=== PATIENT | female | born 1955 | race Caucasian/White ===

== ENCOUNTER 2021-12-06 08:23 | Day surgery (SDC) | payer MEDICARE ==
[~2021-12-06] VITALS: Ht 157.5 cm; Wt 86.2 kg
[~2021-12-06 08:23] MED LIST: 24HR ALLERGY R180 MG PO; BAYER ASPIRIN E81 MG PO; CENTRUM ADULTS1 TAB PO; CRANBERRY125 MG PO; ELAVIL25 M1 PO; KAPSPARGO SPRIN50 MG PO; MONTELUKAST SOD10 MG PO; PEPCID20 MG PO; PRESERVISION AREDS 2 PO; WELLBUTRIN150 M1 PO
[2021-12-06 11:09] VITALS: BP 124/63
== END 2021-12-06 11:30 | disposition home or self-care (01) ==
LOC: ENDO 08:23 → ORM 09:20 → ENDO 09:20 → ORM 09:45 → ENDO 10:00
PROVIDERS: ATTEND Surgery
PROC: 0DJD8ZZ Inspection of Lower Intestinal Tract, Via Natural or Artificial Opening Endoscopic (ICD-10-PCS; principal; 2021-12-06)
DX: K64.8 Other hemorrhoids (principal); I10 Essential (primary) hypertension

== ENCOUNTER 2021-12-08 16:38 | Observation (INO) | payer MEDICARE ==
[~2021-12-08] VITALS: Ht 157.5 cm; Wt 80.0 kg
[2021-12-08] VITALS (10 sets, daily range): BP systolic 138–162; BP diastolic 78–92
[2021-12-08 17:16] LABS: GFR > 60 ML/MIN (>=60 (CALC)); GFR FOR AFR.AMER. > 60 ML/MIN (>=60 (CALC))
[2021-12-08 17:19] LABS: HEMATOCRIT 41.7 % (37.0-47.0); HEMOGLOBIN 13.2 g/dl (12.0-16.0); IMMATURE GRANULOCYTES 0.1 % (0.0-5.0); MEAN CELL VOLUME 89.1 fL CALC (80.0-100.0); MEAN CORPUSCULAR HGB 28.2 pG CALC (26.0-32.0); MEAN CORPUSCULAR HGB CONC 31.7 g/dL CAL (32.0-36.0); NEUT# 6.46 thou/uL (2.00-7.15); RED BLOOD COUNT 4.68 mill/uL (4.20-5.60); RED CELL DISTRI WIDTH 13.3 % (11.5-15.5)
[2021-12-08 17:29] LABS: ALBUMIN 4.2 g/dL (3.2-5.0); ALKALINE PHOSPHATASE 92 u/l (38-126); ANION GAP 13 (6-22 (CALC)); BILIRUBIN, TOTAL 0.2 mg/dL (0.0-1.4); BUN 12 mg/dL (8-23); BUN/CREATININE RATIO 14 (12-20 (CALC)); CARBON DIOXIDE 28 mmol/l (22-30); CHLORIDE 100 mmol/l (95-108); CREATININE 0.9 mg/dL (0.5-1.0); GFR > 60 ML/MIN (>=60 (CALC)); GFR FOR AFR.AMER. > 60 ML/MIN (>=60 (CALC)); POTASSIUM 4.2 mmol/l (3.5-5.1); SGOT/AST 23 u/l (9-36); SODIUM 137 mmol/l (137-146)
[2021-12-08 18:53] LABS: MAGNESIUM 1.9 mg/dL (1.6-2.3)
[2021-12-08 19:24] LABS: TSH, 3RD GENERATION 4.52 uIU/mL (0.47 - 4.68)
[2021-12-09] VITALS: BP 134/79
[2021-12-09 04:00] VITALS: BP 126/72
[2021-12-09 08:00] VITALS: BP 157/71
[2021-12-09 10:33] VITALS: BP 140/67
[2021-12-09] MEDS ORDERED: FLONASE AL50 MCG/ACT (10:51)
== END 2021-12-09 12:55 | disposition home or self-care (01) ==
LOC: ED 16:38 → MS2 18:36
PROVIDERS: Family Medicine; ADMIT Internal Medicine; ATTEND Internal Medicine
DX: R07.2 Precordial pain (principal); I10 Essential (primary) hypertension; K21.9 Gastro-esophageal reflux disease without esophagitis; F41.9 Anxiety disorder, unspecified; F32.A Depression, unspecified; Z79.82 Long term (current) use of aspirin; Z20.822 Contact with and (suspected) exposure to COVID-19
CPT/HCPCS: J1650; Q9967

== ENCOUNTER 2021-12-09 13:03 | Emergency (ER) | payer MEDICARE ==
[~2021-12-09] VITALS: Ht 157.5 cm; Wt 85.0 kg
[~2021-12-09 13:03] MED LIST changes: +FLONASE AL50 MCG/ACT
[2021-12-09 13:18] VITALS: BP 145/95
[2021-12-09 13:30] VITALS: BP 169/92
[2021-12-09 14:00] VITALS: BP 156/95
[2021-12-09 14:01] LABS: HEMATOCRIT 43.4 % (37.0-47.0); HEMOGLOBIN 13.8 g/dl (12.0-16.0); IMMATURE GRANULOCYTES 0.3 % (0.0-5.0); MEAN CELL VOLUME 88.8 fL CALC (80.0-100.0); MEAN CORPUSCULAR HGB 28.2 pG CALC (26.0-32.0); MEAN CORPUSCULAR HGB CONC 31.8 g/dL CAL (32.0-36.0); NEUT# 5.25 thou/uL (2.00-7.15); RED BLOOD COUNT 4.89 mill/uL (4.20-5.60); RED CELL DISTRI WIDTH 13.3 % (11.5-15.5)
[2021-12-09 14:13] LABS: ALBUMIN 4.3 g/dL (3.2-5.0); ALKALINE PHOSPHATASE 72 u/l (38-126); AMYLASE 60 u/l (30-110); ANION GAP 11 (6-22 (CALC)); BILIRUBIN, TOTAL 0.3 mg/dL (0.0-1.4); BUN 10 mg/dL (8-23); BUN/CREATININE RATIO 11 (12-20 (CALC)); CARBON DIOXIDE 30 mmol/l (22-30); CHLORIDE 101 mmol/l (95-108); CREATININE 0.9 mg/dL (0.5-1.0); GFR > 60 ML/MIN (>=60 (CALC)); GFR FOR AFR.AMER. > 60 ML/MIN (>=60 (CALC)); LIPASE 90 u/l (23-300); POTASSIUM 4.4 mmol/l (3.5-5.1); SGOT/AST 20 u/l (9-36); SODIUM 137 mmol/l (137-146)
[2021-12-09 14:30] VITALS: BP 175/92
[2021-12-09 15:00] VITALS: BP 162/91
[2021-12-09 15:55] VITALS: BP 162/91
== END 2021-12-09 15:55 | disposition left against medical advice (07) ==
LOC: ED 13:03
DX: R07.9 Chest pain, unspecified (principal); I10 Essential (primary) hypertension; Z91.19 Patient's noncompliance with other medical treatment and regimen

== ENCOUNTER 2023-09-29 23:34 | Emergency (ER) | payer MEDICARE, OTHER ==
[~2023-09-29] VITALS: Ht 157.5 cm; Wt 84.0 kg
[2023-09-30] VITALS (16 sets, daily range): BP systolic 125–162; BP diastolic 65–89
[2023-09-30 01:10] LABS: BASO% 0.1 % (0-3); EOS% 0.8 % (0-8); HEMOGLOBIN 13.1 g/dl (12.0-16.0); IMMATURE GRANULOCYTES 0.1 % (0.0-5.0); LYMPH% 9.8 % (15-41); MEAN CORPUSCULAR HGB 28.1 pG CALC (26.0-32.0); MONO% 5.5 % (2-13); NEUT# 7.28 thou/uL (2.00-7.15); NEUT% 83.7 % (42-76); RED BLOOD COUNT 4.66 mill/uL (4.20-5.60); RED CELL DISTRI WIDTH 12.9 % (11.5-15.5)
[2023-09-30 01:23] LABS: ALBUMIN 4.2 g/dL (3.2-5.0); ALKALINE PHOSPHATASE 78 u/l (38-126); ANION GAP 9 (6-22 (CALC)); BILIRUBIN, TOTAL 0.3 mg/dL (0.02-1.3); BUN 10 mg/dL (8-23); BUN/CREATININE RATIO 13 (12-20 (CALC)); CARBON DIOXIDE 29 mmol/l (22-30); CHLORIDE 106 mmol/l (95-108); CREATININE 0.8 mg/dL (0.5-1.0); GFR FOR AFR.AMER. > 60 ML/MIN (>=60 (CALC)); GFR OTHER RACES > 60 ML/MIN (>=60 (CALC)); POTASSIUM 3.9 mmol/l (3.5-5.1); SGOT/AST 25 u/l (9-36); SODIUM 139 mmol/l (137-146); TOTAL PROTEIN 6.6 g/dL (6.3-8.2)
== END 2023-09-30 03:55 | disposition home or self-care (01) ==
LOC: ED 23:34
PROVIDERS: Family Medicine
DX: I10 Essential (primary) hypertension (principal)